=== PATIENT | female | born 1965 ===

== ENCOUNTER 2025-04-06 09:15 | Inpatient (IN) | payer OTHER ==
[~2025-04-06] VITALS: Ht 165.1 cm; Wt 68.0 kg
[2025-04-06] MEDS ORDERED: VIVLODEX5 MG PO (13:41)
[2025-04-06] MEDS ORDERED: PRISTIQ ER100 MG PO (13:42)
[2025-04-06] MEDS ORDERED: HORIZANT300 MG PO (13:43)
[2025-04-06] MEDS ORDERED: TOPROL XL25 M1 PO (13:43)
[2025-04-06] MEDS ORDERED: PROTONIX40 MG PO (13:43)
[2025-04-06] MEDS ORDERED: FAMOTIDINE40 MG PO (13:43)
[2025-04-06 13:44] VITALS: BP 106/66
[2025-04-13] MEDS ORDERED: CEFTRIAXONE SODIUM 2,000 MG VIAL IV ONE (08:30)
[2025-04-13] MEDS ORDERED: BUPIVACAINE HCL 30 ML VIAL IV ONE (08:30)
[2025-04-13] MEDS ORDERED: METRONIDAZOLE/SODIUM CHLORIDE 500 MG/100 ML PIGGYBACK IV ONE (08:30)
[2025-04-13] MEDS ORDERED: LIDOCAINE HCL 1%/EPINEPHRINE 20ML VIAL IJ ONE (08:30)
[2025-04-13] MEDS ORDERED: ONDANSETRON HCL 2 MG/ML VIAL IV PRN (11:00)
[2025-04-13] MEDS ORDERED: MORPHINE SULFATE 4 MG/ML CARTRIDGE IV PRN (11:00)
[2025-04-13] MEDS ORDERED: RINGERS SOLUTION,LACTATED 1,000 ML IV SCH (11:00)
[2025-04-13] MEDS ORDERED: OxyCODONE HCL 5 MG TABLET (ROXICODONE) PO PRN (11:00)
[2025-04-13] MEDS ORDERED: ONDANSETRON HCL 2 MG/ML VIAL IV ONE (11:30)
[2025-04-13] MEDS ORDERED: MORPHINE SULFATE 4 MG/ML VIAL IV ONE (11:30)
[2025-04-13] MEDS ORDERED: HYOSCYAMINE SULFATE 0.125 MG TAB.SUBL SL SCH (13:00)
[2025-04-13] MEDS ORDERED: SIMETHICONE 125 MG CAPSULE PO SCH (13:00)
[2025-04-13 13:17] LABS: BASO % 0.2 % (0.1-1.2); EOS # 0.01 (0.04-0.54); EOS % 0.1 % (0.7-7.0); LYMPH # 0.73 (1.18-3.74); LYMPH % 5.3 % (19.3-53.1); MEAN PLATELET VOLUME 11.30 fl (9.4-12.4); MONO # 0.57 (0.24-0.82); MONO % 4.1 % (4.7-12.5); NEUT # 12.39 (1.56-6.13); NEUT % 90.1 % (34.0-71.1); RED CELL DISTRIBUTION WIDTH 12.3 % (11.6-14.4)
[2025-04-13 13:50] LABS: ABG PH 7.372 (7.35-7.45); ABG PO2 271.7 mmHg (80-100); BICARBONATE 23.2 mmol/l (23-25)
[2025-04-13] MEDS ORDERED: ACETAMINOPHEN 500 MG GEL..CAP PO SCH (14:00)
[2025-04-13 14:11] LABS: o2 50 %
[2025-04-13] MEDS ORDERED: METOCLOPRAMIDE HCL 5 MG/ML VIAL IV SCH (17:00)
[2025-04-13] MEDS ORDERED: CELECOXIB 200 MG CAPSULE PO SCH (17:00)
[2025-04-13] MEDS ORDERED: POLYETHYLENE GLYCOL 3350 17 GM BLIST.PACK PO SCH (17:00)
[2025-04-13] MEDS ORDERED: GABAPENTIN 300 MG CAPSULE PO SCH (17:00)
[2025-04-13 17:43] VITALS: BP 106/66; O2SAT 95
[2025-04-13 18:19] VITALS: O2SAT 99
[2025-04-13] MEDS ORDERED: BUSPIRONE HCL 5 MG TABLET PO SCH (21:00)
[2025-04-13] MEDS ORDERED: FAMOTIDINE/PF 20 MG/2 ML VIAL IV PUSH SCH (21:00)
[2025-04-13 21:36] VITALS: O2SAT 96; O2SAT 99
[2025-04-14] VITALS (8 sets, daily range): BP systolic 102–114; BP diastolic 64–68; O2SAT 96–98
[2025-04-14] MEDS ORDERED: ENALAPRILAT DIHYDRATE 1.25 MG/ML VIAL IV PRN (06:00)
[2025-04-14 06:22] LABS: BASO % 0.4 % (0.1-1.2); EOS # 0.09 (0.04-0.54); EOS % 0.9 % (0.7-7.0); LYMPH # 0.92 (1.18-3.74); LYMPH % 8.8 % (19.3-53.1); MEAN PLATELET VOLUME 11.90 fl (9.4-12.4); MONO # 0.72 (0.24-0.82); MONO % 6.9 % (4.7-12.5); NEUT # 8.68 (1.56-6.13); NEUT % 82.9 % (34.0-71.1); RED CELL DISTRIBUTION WIDTH 12.4 % (11.6-14.4)
[2025-04-14 06:54] LABS: BUN CREA RATIO 10.0 (7.0-25.0); CREATININE SERUM 0.67 mg/dL (0.55-1.02); GFR 90.4; GLUCOSE FASTING 99.0 mg/dL (65-100); OSMOLALITY SERUM 283.0 MOSM/KG (275-295)
[2025-04-14] MEDS ORDERED: LACTOBACILLUS ACIDOPHILUS 1 CAP CAP PO SCH (09:00)
[2025-04-14] MEDS ORDERED: LACTULOSE 20 G/30 ML BLIST.PACK PO SCH (09:00)
[2025-04-14] MEDS ORDERED: PATIENTS OWN MEDICATION (MEDICAMENTO EN PISO) PO SCH ×2 (09:00→21:00)
[2025-04-14] MEDS ORDERED: MAGNESIUM SULFATE IN WATER 50 ML IV NR (13:00)
[2025-04-14] MEDS ORDERED: ENOXAPARIN SODIUM 40 MG/0.4 ML SYRINGE SUBCUTANEO SCH (17:00)
[2025-04-15] VITALS (9 sets, daily range): BP systolic 105–123; BP diastolic 64–75; O2SAT 96–100
[2025-04-15 06:18] LABS: BASO % 0.3 % (0.1-1.2); EOS # 0.24 (0.04-0.54); EOS % 3.3 % (0.7-7.0); LYMPH # 0.70 (1.18-3.74); LYMPH % 9.5 % (19.3-53.1); MEAN PLATELET VOLUME 11.50 fl (9.4-12.4); MONO # 0.42 (0.24-0.82); MONO % 5.7 % (4.7-12.5); NEUT # 5.95 (1.56-6.13); NEUT % 80.9 % (34.0-71.1); RED CELL DISTRIBUTION WIDTH 12.7 % (11.6-14.4)
[2025-04-15 06:45] LABS: BUN CREA RATIO 10.0 (7.0-25.0); CREATININE SERUM 0.7 mg/dL (0.55-1.02); GFR 85.94; GLUCOSE FASTING 92.0 mg/dL (65-100); OSMOLALITY SERUM 290.0 MOSM/KG (275-295)
[2025-04-15] MEDS ORDERED: ENOXAPARIN SODIUM 40 MG/0.4 ML SYRINGE SUBCUTANEO SCH (09:00)
[2025-04-15] MEDS ORDERED: POTASSIUM PHOS,M-BASIC-D-BASIC 15 MM in 0.9 % SODIUM CHLORIDE 250 ML IV NR (11:15)
[2025-04-16 01:42] VITALS: O2SAT 98
[2025-04-16 06:08] VITALS: O2SAT 97
[2025-04-16 09:54] VITALS: BP 123/68; O2SAT 97
== END 2025-04-16 11:45 | disposition home or self-care (01) | DRG 330 ==
LOC: O/R 04-13 09:02 → SURH 04-13 09:15 → SURG 04-13 16:00 → SURH 04-13 17:15 → SURG 04-16 11:45
PROVIDERS: Internal Medicine Geriatric Medicine; ADMIT Colon & Rectal Surgery; ATTEND Colon & Rectal Surgery
PROC: 0DBP4ZZ Excision of Rectum, Percutaneous Endoscopic Approach (ICD-10-PCS; 2025-04-13)
PROC: 0DJD8ZZ Inspection of Lower Intestinal Tract, Via Natural or Artificial Opening Endoscopic (ICD-10-PCS; 2025-04-13)
PROC: 4A12X4Z Monitoring of Cardiac Electrical Activity, External Approach (ICD-10-PCS; 2025-04-13)
PROC: 0DTN4ZZ Resection of Sigmoid Colon, Percutaneous Endoscopic Approach (ICD-10-PCS; principal; 2025-04-13 17:15)
DX: K57.32 Diverticulitis of large intestine without perforation or abscess without bleeding (principal); K92.1 Melena; R00.2 Palpitations